=== PATIENT | male | born 1985 | race Hispanic/Latino ===

== ENCOUNTER 2017-06-13 16:14 | Emergency (ER) | payer OTHER ==
[2017-06-13] MEDS ORDERED: Adacel (T-DAP) 0.5 ML VIAL ONE (17:30)
--- NOTE | 2017-06-13 17:39 | RAD ---
LEFT MIDDLE FINGER TWO VIEWS: History: 32-year-old male with injury to the distal middle finger after trauma. FINDINGS: There is soft tissue swelling of the distal aspect of the middle finger with several very small chip type fractures off the distal tuft. IMPRESSION: Slightly comminuted tuft fracture of the distal tuft of the distal phalanx of the middle finger with associated soft tissue injury. POS: [facility]
[2017-06-13] MEDS ORDERED: levETIRAcetam 500 MG TAB ONE (17:53)
[2017-06-13] MEDS ORDERED: Ibuprofen 200 MG TAB ONE (17:53)
== END 2017-06-13 18:00 | disposition home or self-care (01) ==
LOC: NAV ERS 16:14
DX: S62.633B Displaced fracture of distal phalanx of left middle finger, initial encounter for open fracture (principal); W20.8XXA Other cause of strike by thrown, projected or falling object, initial encounter
CPT/HCPCS: 90471; 90715